=== PATIENT | female | born 1995 | race Caucasian/White ===

== ENCOUNTER → 2019-11-12 | Outpatient (CLI) | payer OTHER ==
--- NOTE | 2019-11-12 18:04 | RADIOLOGY REPORT (SQ) ---
EXAM DESCRIPTION: ANKLE RIGHT COMPLETE IMAGES COMPLETED DATE/TIME: 11/12/2019 5:53 pm REASON FOR STUDY: (S99.911A)UNSPECIFIED INJURY OF RIGHT ANKLE, INITIAL ENCOUNTER S99.911A UNSPECIFI ED INJURY OF RIGHT ANKLE, INITIAL ENCOUNTE COMPARISON: None. NUMBER OF VIEWS: Three views. TECHNIQUE: AP, lateral, and oblique radiographic images acquired of the right ankle. LIMITATIONS: None. FINDINGS: MINERALIZATION: Normal. BONES: No acute fracture or dislocation. No worrisome bone lesions. JOINTS: No effusions. SOFT TISSUES: No soft tissue swelling. No foreign body. OTHER: No other significant finding. IMPRESSION: 1. No osseous findings. TECHNICAL DOCUMENTATION: JOB ID: [id number] 2010 [employer]- All Rights Reserved Reading location - IP/workstation name: [email or web address]
== END ==
LOC: RAD 17:33
PROVIDERS: ATTEND Nurse Practitioner Acute Care
DX: S99.911A Unspecified injury of right ankle, initial encounter (principal); X58.XXXA Exposure to other specified factors, initial encounter

== ENCOUNTER → 2019-12-07 | Outpatient (CLI) | payer OTHER ==
--- NOTE | 2019-12-07 09:17 | RADIOLOGY REPORT (SQ) ---
EXAM DESCRIPTION: U/S ABDOMEN LIMITED W/O DOP IMAGES COMPLETED DATE/TIME: 12/07/2019 9:08 am REASON FOR STUDY: RUQ PAIN R10.11 RIGHT UPPER QUADRANT PAIN COMPARISON: None. TECHNIQUE: Dynamic and static grayscale images acquired of the abdomen and recorded on PACS. Additio nal selected color Doppler and spectral images recorded. LIMITATIONS: None. FINDINGS: PANCREAS: No masses. Visualized pancreatic duct normal caliber. LIVER: No masses. Echotexture normal. LIVER VASCULATURE: Normal directional flow of the main portal vein and hepatic veins. GALLBLADDER: No stones. Normal wall thickness. No pericholecystic fluid. ULTRASOUND-DETECTED BUTLER'S SIGN: Negative. INTRAHEPATIC DUCTS AND COMMON DUCT: CBD and intrahepatic ducts normal caliber. No filling defects. RIGHT KIDNEY: Normal size. Normal echogenicity. No solid or suspicious masses. No hydronephrosis. No calcifications. PERITONEAL AND RIGHT PLEURAL SPACE: No ascites or effusions. OTHER: No other significant findings. IMPRESSION: NORMAL RIGHT UPPER QUADRANT ULTRASOUND. TECHNICAL DOCUMENTATION: JOB ID: [id number] 2010 [employer]- All Rights Reserved Reading location - IP/workstation name: [email or web address]
--- NOTE | 2019-12-07 09:21 | RADIOLOGY REPORT (SQ) ---
EXAM DESCRIPTION: U/S NON-OB PELVIS TV W/O DOP IMAGES COMPLETED DATE/TIME: 12/07/2019 9:08 am REASON FOR STUDY: PERSONAL HX OF FEMAL GENITAL TRACT R10.11 RIGHT UPPER QUADRANT PAIN COMPARISON: None. TECHNIQUE: Dynamic and static grayscale images acquired of the pelvis via transvaginal approach and recorded on PACS. Additional selected color Doppler and spectral images recorded. LIMITATIONS: None. FINDINGS: UTERUS: Contour normal. No mass. ENDOMETRIAL STRIPE: No focal or generalized thickening. No masses. CERVIX: No nabothian cysts. RIGHT OVARY AND DOPPLER: Normal size. No worrisome masses. Normal arterial vascular flow without evid ence for torsion. LEFT OVARY AND DOPPLER: Normal size. Normal arterial vascular flow without evidence for torsion. Sm all complex left ovarian cysts. The largest measures 1.6 x 0.9 x 0.8 mm. A smaller lesion measures 8 x 8 x 10 mm. This has a small solid component as well. FREE FLUID: There is free fluid in the cul de sac. OTHER: No other significant finding. MEASUREMENTS: UTERUS: 6.7 x 4.7 x 3.5 cm. ENDOMETRIAL STRIPE: 1.2 cm. RIGHT OVARY: 2.4 x 1.8 x 1.9 cm. LEFT OVARY: 3.5 x 1.8 x 2.2 cm. IMPRESSION: Small complex left ovarian cysts. The largest measures 1.6 x 0.9 x 0.8 mm. No other si gnificant findings. TECHNICAL DOCUMENTATION: JOB ID: [id number] 2010 [employer]- All Rights Reserved Rev-06/28 Reading location - IP/workstation name: [email or web address]
== END ==
LOC: RAD 08:01
PROVIDERS: ATTEND Nurse Practitioner Family
DX: N83.292 Other ovarian cyst, left side (principal); R10.11 Right upper quadrant pain
CPT/HCPCS: 76705; 76830

== ENCOUNTER → 2019-12-23 | Outpatient (CLI) | payer OTHER ==
--- NOTE | 2019-12-23 09:24 | RADIOLOGY REPORT (SQ) ---
EXAM DESCRIPTION: NM HIDA SCAN WITH CCK IMAGES COMPLETED DATE/TIME: 12/23/2019 9:17 am REASON FOR STUDY: RUQ PAIN R10.11 RIGHT UPPER QUADRANT PAIN COMPARISON: None. RADIONUCLIDE AND DOSE: DOSAGE RADIONUCLIDE: 5.36 millicuries Tc99m Mebrofenin. DOSAGE CCK: 1.2 micrograms. DOSAGE MORPHINE: Not required. The route of agent administration: Intravenous TECHNIQUE: Serial imaging right upper quadrant up to 60 minutes following injection of radionuclide. CCK injected after gallbladder visualized. LIMITATIONS: None. FINDINGS: LIVER: Normal visualization without areas of photopenia. INTRAHEPATIC BILE DUCTS: Normal size and no delay in visualization. COMMON BILE DUCT: Normal without dilatation. GALLBLADDER: Normal visualization. Calculated ejection fraction of 50%. Normal range is greater th an 35%. PHYSICAL RESPONSE: Patients presenting complaint was not reproduced. OTHER: No other significant finding. IMPRESSION: NORMAL STUDY WITHOUT CYSTIC OR COMMON DUCT OBSTRUCTION. NORMAL GALLBLADDER EJECTION FRA CTION. NO EVIDENCE FOR BILIARY DYSKINESIS. TECHNICAL DOCUMENTATION: JOB ID: [id number] 2010 [employer]- All Rights Reserved Reading location - IP/workstation name: [email or web address]
--- OUTSIDE RECORDS SUMMARY | 2019-12-24 17:56 | XMS REPORT ---
:1995 [facility] [address] [place] [address] Care Team Providers Name Role Phone Altagracia Boyle Attending Clinician Unavailable Mark Ha Attending Clinician Unavailable Allergies, Adverse Reactions, Alerts This patient has no known allergies or adverse reactions. Medications This patient has no known medications. Problems This patient has no known problems. Procedures Procedure Date / Time Performed Performing Clinician Devic e OFFICE/OUTPATIENT VISIT EST 2019-11-18 16:00:00 OFFICE/OUTPATIENT VISIT NEW 2019-10-28 14:30:00 Results This patient has no known results. Assessments Condition Name Status Diagnosis Date Treating Clinici an Dysmenorrhea, unspecified Active Unspecified dyspareunia Active Personal history of oth diseases of the Active female genital tract Right upper quadrant pain Active Personal history of oth diseases of the Active female genital tract Body mass index (BMI) 23.0-23.9, adult Active Paresthesia of skin Active Dysmenorrhea, unspecified Active Encounters Start End Encounter Admission Attending Care Care Encounter Date/Time Date/Time Type Type Clinicians Facility Department ID 2019-11-18 2019-11-18 [facility] [id number] 16:00:00 16:00:00 Altagracia Children [id number] s [id number] and [id number] [facility], 2019-10-28 2019-10-28 [facility] [id number] 14:30:00 14:30:00 Mark Children [id number] s [id number] and [id number] [facility], Social History This patient has no known social history. Vital Signs This patient has no known vital signs.
== END ==
LOC: RAD 07:28
PROVIDERS: ATTEND Nurse Practitioner Family
DX: R10.11 Right upper quadrant pain (principal); Z87.42 Personal history of other diseases of the female genital tract
CPT/HCPCS: 78227; J2805; A9537; Q9969